=== PATIENT | female | born 1995 | race Caucasian/White ===

== ENCOUNTER 2020-12-23 12:10 | Emergency (ER) | payer SELFPAY ==
[~2020-12-23] VITALS: Ht 167.6 cm; Wt 43.5 kg
[2020-12-23 12:34] VITALS: BP 120/75
[2020-12-23] MEDS ORDERED: DICYCLOMINE HCL LIQUID 20 MG, ALUMINUM HYD/MAG/SIMETHICONE 30 ML, LIDOCAINE VISCOUS 2% ... PO ONE ×3 (13:45)
[2020-12-23] MEDS ORDERED: ALUMINUM HYD/MAG/SIMETHICONE 30 ML UDC ONE (13:49)
[2020-12-23] MEDS ORDERED: LIDOCAINE VISCOUS 2% 20 ML UDC ONE (13:49)
[2020-12-23] MEDS ORDERED: DICYCLOMINE HCL LIQUID 10 MG/5 ML UDC ONE (13:50)
[2020-12-23] MEDS ORDERED: ONDA-24 SL (14:30)
[2020-12-23] MEDS ORDERED: ACET-10509 PO (14:30)
[2020-12-23 14:43] VITALS: BP 120/75
== END 2020-12-23 14:40 | disposition home or self-care (01) ==
LOC: MED 12:10
DX: A05.9 Bacterial foodborne intoxication, unspecified (principal); R11.2 Nausea with vomiting, unspecified; Z79.899 Other long term (current) drug therapy
CPT/HCPCS: 81002; 81025; 99283